=== PATIENT | male | born 1960 | race Two or more races ===

== ENCOUNTER 2022-09-22 20:24 | Emergency (ER) | payer SELFPAY ==
[~2022-09-22] VITALS: Ht 180.3 cm; Wt 74.4 kg
[2022-09-22 20:27] VITALS: BP 134/94
[2022-09-22] MEDS ORDERED: IBUPROFEN 600 MG TAB PO ONE (21:35)
[2022-09-22] MEDS ORDERED: IBUP-1842 PO (21:39)
== END 2022-09-22 21:51 | disposition home or self-care (01) ==
LOC: MED 20:24
DX: M79.661 Pain in right lower leg (principal); M79.662 Pain in left lower leg; F10.129 Alcohol abuse with intoxication, unspecified; Z59.00 Homelessness unspecified; Y90.9 Presence of alcohol in blood, level not specified
CPT/HCPCS: 99282